=== PATIENT | male | born 1995 | race American Indian/Alaskan Native ===

== ENCOUNTER 2022-03-18 03:02 | Emergency (ER) | payer SELFPAY ==
[2022-03-18 03:30] VITALS: BP 94/75
--- NOTE | 2022-03-18 06:06 | Emergency Department Report ---
ED General Adult HPI - General Chief complaint: Wound/Laceration Stated complaint: RT HAND LACERATION Source: patient Mode of arrival: Ambulatory Limitations: No Limitations - History of Present Illness Initial comments: Patient 26-year-old male who presents for right thumb laceration volar states he was cutting chicken for dinner and accidentally cut his finger with chef broiler or fry knife. There is no nerve muscle or tendon damage obvious. Range of motion remains intact. Bleeding was controlled via direct pressure self applied. Patient drove self to ED patient is alert oriented x3 amatory steady gait with no acute distress. Patient does endorse pain at 3/10 exacerbated by movement and palpation. Patient denies other symptoms. Severity scale (0 -10): 2 - Related Data Previous Rx's Medication Instructions Recorded Last Taken Type cephALEXin [Keflex] 500 mg PO Q8HR 7 Days #21 cap 03/18/22 Unknown Rx traMADoL [Ultram] 50 mg PO Q6HR PRN #12 tablet 03/18/22 Unknown Rx Allergies Allergy/AdvReac Type Severity Reaction Status Date / Time No Known Allergies Allergy Unverified 03/18/22 05:22 ED Review of Systems ROS: Stated complaint: RT HAND LACERATION Other details as noted in HPI Constitutional: denies: chills, fever Eyes: denies: eye pain, eye discharge, vision change ENT: denies: ear pain, throat pain Respiratory: denies: cough, shortness of breath, wheezing Cardiovascular: denies: chest pain, palpitations Endocrine: no symptoms reported Gastrointestinal: denies: abdominal pain, nausea, diarrhea Genitourinary: denies: urgency, dysuria Musculoskeletal: other Skin: other (Laceration as well as). denies: rash, lesions Neurological: denies: headache, weakness, paresthesias Psychiatric: denies: anxiety, depression Hematological/Lymphatic: denies: easy bleeding, easy bruising ED Past Medical Hx - Social History Smoking Status: Unknown if ever smoked - Medications Home Medications: Home Medications Medication Instructions Recorded Confirmed Last Taken Type cephALEXin [Keflex] 500 mg PO Q8HR 7 Days #21 cap 03/18/22 Unknown Rx traMADoL [Ultram] 50 mg PO Q6HR PRN #12 tablet 03/18/22 Unknown Rx ED Physical Exam - General Limitations: No Limitations General appearance: alert, in no apparent distress - Head Head exam: Present: normocephalic, normal inspection - Eye Eye exam: Present: normal appearance, EOMI Pupils: Present: normal accommodation - ENT ENT exam: Present: normal orophraynx, mucous membranes moist - Neck Neck exam: Present: normal inspection, full ROM. Absent: tenderness, lymphadenopathy - Respiratory Respiratory exam: Present: normal lung sounds bilaterally. Absent: respiratory distress, wheezes, stridor - Cardiovascular Cardiovascular Exam: Present: regular rate, normal rhythm, normal heart sounds. Absent: systolic murmur, diastolic murmur, rubs, gallop - GI/Abdominal GI/Abdominal exam: Present: soft, normal bowel sounds. Absent: distended, tenderness - Rectal Rectal exam: Present: deferred - Extremities Exam Extremities exam: Present: normal inspection, full ROM, normal capillary refill - Expanded Upper Extremity Exam Right Hand Wrist exam: Present: full ROM, laceration (2 cm right volar thumb base no nerve muscle or tendon damage.). Absent: tenderness, swelling, abrasion, ecchymosis, deformity, crepidus, dislocation, erythema, amputation, nail avulsion, subungual hematoma Neuro motor exam: Present: wrist extension intact, thumb opposition intact, thumb IP flexion intact, thumb adduction intact, fingers 2-5 abduction intact Neurosensory exam: Present: radial nerve intact Vascular: Present: normal capillary refill - Back Exam Back exam: Present: normal inspection, full ROM. Absent: CVA tenderness (R), CVA tenderness (L) - Neurological Exam Neurological exam: Present: alert, oriented X3, CN II-XII intact, reflexes normal. Absent: motor sensory deficit - Expanded Neurological Exam Expanded Patient oriented to: Present: person, place, time Speech: Present: fluid speech Motor strength exam: RUE: 5, LUE: 5 DTR: bicep (R): 1+, bicep (L): 1+, tricep (R): 1+, tricep (L): 1+ Best Eye Response (Kacy): (4) open spontaneously Best Motor Response (Peetz): (6) obeys commands Best Verbal Response (Kacy): (5) oriented Peetz Total: 15 - Psychiatric Psychiatric exam: Present: normal affect, normal mood - Skin Skin exam: Present: warm, dry, intact, normal color. Absent: rash ED Course Vital Signs 03/18/22 03/18/22 03:08 04:33 Temperature 98.0 F Pulse Rate 105 H Respiratory 18 Rate Blood Pressure 94/75 O2 Sat by Pulse 99 99 Oximetry - Laceration /Wound Repair Right Volar Finger Wound Location: upper extremity (Right volar thumb laceration2 cm irregular no nerve muscle or tendon damage no active bleeding) Wound Explored: clean Irrigated w/ Saline (ccs): 50 Betadine Prep?: Yes Anesthesia: 1% Lidocaine Volume Anesthetic (ccs): 3 Wound Debrided: None Wound Repaired With: sutures Suture Size/Type: 3:0, proline Number of Sutures: 70 Sterile Dressing Applied?: Yes Progress: Right volar thumb laceration base 2 cm irregular site cleaned with Betadine solution anesthesia with 3 cc 1% lidocaine anesthesia is achieved. Irrigated wound irrigated with 50 cc sterile saline. Wound manually explored no foreign bodies noted no nerve muscle or tendon damage, wound closed with 3-0 Prolene times 7 sutures running edges well approximated all bleeders controlled sterile dressing applied patient given wound care instructions including follow-up primary care doctor in 2 days. In 7 to 10 days for suture removal. Patient verbalized agreement and understanding of discharge plan. Patient DC'd home in stable condition at this time. Patient tolerated procedure with minimal distress. Sterile ED Medical Decision Making - Medical Decision Making Thumb laceration see laceration wound procedure progress note. Patient DC'd home at this time will follow primary care doctor in 2 days for wound check. 7 to 10 days for suture removal. Patient verbalized agreement understanding with same. Patient DC'd home in stable condition at this time Critical care attestation.: If time is entered above; I have spent that time in minutes in the direct care of this critically ill patient, excluding procedure time. ED Disposition Clinical Impression: Laceration of thumb, right Qualifiers: Encounter type: initial encounter Damage to nail status: without damage Foreign body presence: without foreign body Qualified Code(s): S61.011A - Laceration without foreign body of right thumb without damage to nail, initial encounter Disposition: 01 HOME / SELF CARE / HOMELESS Is pt being admited?: No Does the pt Need Aspirin: No Condition: Stable Instructions: Sutures, [place], or Adhesive Wound Closure Additional Instructions: Take medications as prescribed, symptoms of infection as directed follow-up with your doctor in 2 to 3 days. Return to emergency department should symptoms worsen. Prescriptions: cephALEXin [Keflex] 500 mg PO Q8HR 7 Days #21 cap traMADoL [Ultram] 50 mg PO Q6HR PRN #12 tablet PRN Reason: Pain Referrals: JYOTI PORTILLO MD [Staff Physician] - 3-5 Days Forms: Work/School Release Form(ED) Time of Disposition: 06:09
[2022-03-18] MEDS ORDERED: cephALEXin 500 MG CAP PO ONE (06:17)
[2022-03-18] MEDS ORDERED: traMADol 50 MG TAB PO ONE (06:18)
[2022-03-18] MEDS ORDERED: LIDOCAINE-MPF (1%) 10 MG/1 ML VIAL 5 ML INFILTRATI ONE (06:18)
== END 2022-03-18 06:15 | disposition home or self-care (01) ==
LOC: ED 03:02
DX: S61.011A Laceration without foreign body of right thumb without damage to nail, initial encounter (principal); X58.XXXA Exposure to other specified factors, initial encounter; Y93.89 Activity, other specified; Y92.89 Other specified places as the place of occurrence of the external cause; Y99.8 Other external cause status
CPT/HCPCS: 12001; 99282; J3490